=== PATIENT | male | born 1960 | race African-American/Black ===

== ENCOUNTER 2017-05-22 08:08 | Inpatient (IN) | payer OTHER ==
[~2017-05-22] VITALS: Ht 175.3 cm; Wt 90.7 kg
--- NOTE | ~2017-05-22 | HC ---
[facility] [place] [address] CONSULTATION Name: MADINA DESAI Room #: 361-P [facility] IN M.R.#: [id number] Admission: 05/22/17 Attend Phys: Renato De Paz DO Discharge: Date of : 56 Report #: [id number] THIS REPORT FOR: //name// CC: Renato Zhang INFECTIOUS DISEASES CONSULTATION REASON FOR CONSULTATION: I was asked to evaluate concerning leukocytosis and change in mental status. HISTORY OF PRESENT ILLNESS: The patient was a 56-year-old with history of hypertension and stroke who has been residing in a group home for the past year. Presents now with change in mental status. The patient was unable to give any history. I contacted Ce Wagoner, his significant other, who notes that he has had decreased mental status over the last week. She visited on Monday and noticed that he did answer questions, but he was not near as conversive that he normally is. She did state that his appetite was good. She did not notice any complaints of headache, cough, sputum production, nausea, vomiting or diarrhea. No dysuria. On presentation to the Emergency Room this morning, the history was that the patient was found in his wheelchair, slumped over on his bed. How long he was that way is not totally clear to me at this time. His blood sugar was satisfactory and oxygen saturation was normal. PAST MEDICAL HISTORY: Stroke. He has had left femur fracture, anxiety disorder, hyperlipidemia, major depressive disorder, hypertension, gastroesophageal reflux, gout, BPH. ALLERGIES: PENICILLIN, REACTION NOT KNOWN. MEDICATIONS: As noted on his JUN, which was reviewed. He does take baclofen, Flexeril, bupropion, aspirin, amlodipine, allopurinol, loratadine, pantoprazole, MiraLax, vitamin D, gabapentin, Sinemet, atorvastatin, donepezil, melatonin and trazodone. SOCIAL HISTORY: Noncontributory other than him is a group home resident. FAMILY HISTORY: Not available. REVIEW OF SYSTEMS: As noted above with no additions. PHYSICAL EXAMINATION: GENERAL: He was afebrile, hemodynamically stable. He was lethargic. Would arouse on loud verbal stimulus. Would not follow commands. SKIN: He had reticular erythematous type rash over his abdomen and lower extremities, mostly over the thighs. LYMPHATIC: Unremarkable. [address] [address] CONSULTATION Name: MAIDNA DESAI Room #: 361-P [facility] IN M.R.#: [id number] Admission: 05/22/17 Attend Phys: Renato De Paz DO Discharge: Date of : 56 Report #: [id number] HEENT: Conjunctival injection. Mouth unremarkable. NECK: Supple, no adenopathy. LUNGS: Clear. HEART: Regular, without murmur. ABDOMEN: Soft, did not appear tender with no hepatosplenomegaly or mass. GENITOURINARY: External genitalia were unremarkable. RECTAL: Not performed. EXTREMITIES: Unremarkable. NEUROLOGIC: Nonfocal. LABORATORY STUDIES: Chest x-ray, bilateral basilar atelectasis. CT of the head shows atrophy with no acute changes. Hemoglobin is 17.1; platelet count 280,000; white count 22.7. Lactate 2.2. Influenza antigen negative. TSH 6.9. Sodium 144, potassium 4.8, bicarb at 28, creatinine 1.6 up from his baseline of 0.8. Alkaline phosphatase 205, ALT 32, albumin of 4.4, bilirubin 0.7. Blood cultures are pending. IMPRESSION: A 56-year-old with change in mental status. Considerations would be stroke, seizure, encephalitis, toxic metabolic encephalopathy, urinary tract source possible. Did not get the sense that we are dealing with pneumonia or gastroenteritis type issue. No diarrhea. Did not have any abdominal pain. I have discussed with nursing staff who has watched him most of the day. It does seem that he has perked up a bit from his initial presentation. RECOMMENDATION: We will have Neurology assist in his evaluation. Would consider MRI scan and a lumbar puncture. We will check urinalysis, urine culture. CT scan of his abdomen and pelvis to assess his upper urinary tract further. Continue antibiotic coverage, pending culture results. Add acyclovir until further studies are back. <ELECTRONICALLY SIGNED> By: Agusto Baca MD 05/23/17 0843 [id number] 0256 Agusto Baca MD /nt
--- NOTE | ~2017-05-22 | EEG ---
[facility] [place] [address] ELECTROENCEPHALOGRAM Name: MADINA DESAI Room #: 361-P ADM IN M.R.#: [id number] Admission: 05/22/17 Attend Phys: Renato De Paz DO Discharge: Date of : 56 Report #: [id number] THIS REPORT FOR: //name// CC: Renato Zhang DATE OF SERVICE: 05/23/2017 This patient is being evaluated for altered mental status. EEG was done by placing the electrodes by standard 10/20 system of electrode placement. Both referential and sequential montages were used for recording. Background activity in this patient's EEG appeared to be about 8-9 Hz and 30 microvolt. Photic stimulation is unremarkable. The patient's EEG is slow on occasion that is associated with bilateral slowing. Throughout the record, no active epileptiform activity was noticed. IMPRESSION: This patient's EEG is only mildly abnormal intermixed with theta range slowing. No active epileptiform activity was noticed during this record. Thank you very much for this referral. <ELECTRONICALLY SIGNED> By: Radames Francis MD 05/24/172010 41 51 Radames Francis MD /nt
--- NOTE | ~2017-05-22 | EKG ---
[address] [address] ELECTROCARDIOGRAM REPORT Name: MADINA DESAI Room #: 361-P ADM IN M.R.#: [id number] Admission: 05/22/17 Attend Phys: Renato De Paz DO Discharge: Date of : 56 Report #: [id number] THIS REPORT FOR: //name// [facility] Test Date: 2017-05-22 Test Time: 13:08:10 Pat Name: MADINA DESAI Department: Room: [facility] Gender: M Commissary Agent: Kt MATUTE : 1960 Requested By: Jason Boateng Order Number: [id number] MD: Alexander Neville Measurements Intervals [place] Rate: 106 P: 56 FL: 175 QRS: 45 QRSD: 82 T: 32 QT: 367 QTc: 488 Interpretive Statements Sinus tachycardia Atrial premature complexes Probable left atrial enlargement Compared to ECG 05/17/2015 10:24:05 Atrial premature complex(es) now present Sinus rhythm no longer present T-wave abnormality no longer present Electronically Signed On 05-22-2017 15:46:23 GALVANOMETER ASSEMBLER by Alexander Neville [email or web address] <ELECTRONICALLY SIGNED> By: Alexander Neville MD 05/22/17 1546 1308 1308 Alexander Neville MD /EPI
--- NOTE | ~2017-05-22 | HC ---
[facility] [place] [address] CONSULTATION Name: MADINA DESAI Room #: 361-P [facility] IN M.R.#: [id number] Admission: 05/22/17 Attend Phys: Renato De Paz DO Discharge: Date of : 56 Report #: [id number] THIS REPORT FOR: //name// CC: Renato Zhang DATE OF SERVICE: 05/23/2017 HISTORY OF PRESENT ILLNESS: This is a 56-year-old male patient who is not able to provide any reliable history. I reviewed the patient's records and talked to Dr. Baca, the infectious disease who have seen this patient. None of the family member is available or reachable at the moment, we will try to reach them. This patient apparently is better than he was yesterday. He has altered mental status apparently, which is going on for a week and then he slumped. He was initially seen by Dr. Baca and this morning neurology consultation was requested to determine any neurological etiology for the patient's seizure. As far my conversation with the ID and the record, it looks like this patient has improved compared to yesterday. Nobody witnessed any seizure activity in this patient. His confusion was pretty severe yesterday, but today he is able to talk. There is no associated head trauma. No clear source of infection has been identified, but he has been treated accordingly. REVIEW OF SYSTEMS: Indicate that this patient had altered mental status. He was found slumped over. He indicated he had a stroke affecting the left side of the body. He indicated he is on disability because of hip and knee injury. He could not tell me when the stroke was. He said he lived by himself, but it looks like from the record he lives in a assisted. 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 He indicated that he does not know another. He did have some nausea and vomiting, but he is better. This was his relevant 14-point review of systems. PAST MEDICAL HISTORY: Positive for stroke, but I do not have any records in that regard. FAMILY HISTORY: Indicates that he does not have any early age stroke in his family. SOCIAL HISTORY: Indicate that he says that he does not smoke. PHYSICAL EXAMINATION: The patient's examinations indicate he is alert. He is responsive. His speech is very soft, but he is able to follow simple commands at least most of the time. He can tell me what month it is, he long time to name the president, but he could not tell me the exact date. Apparently, this is a significant improvement since yesterday. He does not appear to have any aphasia. His cranial nerve examination 2-12 were carried out and that indicate there may be a little facial palsy on the left side. Examination is [address] [address] CONSULTATION Name: MADINA DESAI Adi Room #: 361-P [facility] IN ..#: [id number] Admission: 05/22/17 Attend Phys: Renato De Paz DO Discharge: Date of : 56 Report #: [id number] incomplete because he is not able to cooperate very well. He moves the left side, but he is weaker on the left side. He says that he can feel things, but his tone looks symmetrical. It is difficult to tell about the meningeal sign. He indicates that his neck hurts, but it is not much in flexion or extension the best I can tell. He could not cooperate with the fundus examination. Cardiac and respiratory examination is unremarkable. He did have a CT scan of the head, which showed small vessel changes. His MRI is pending. IMPRESSION: This patient's diagnosis is not clear. He needs some further workup to determine the diagnosis in his case. I agree with an MRI. I will also favor doing a spinal tap in this patient. He did get Lovenox last night, so I will hold that Lovenox tonight and we will talk to you and talk to ID again and I will favor doing the spinal tap in this patient because the diagnosis is not clear in this patient. Since he had Lovenox last night and he is already on acyclovir and multiple other antibiotics, it may be desirable to do it tomorrow. I will also get an EEG done because the episode why he slumped over is not very clear. I discussed all of this with the patient in great detail. This patient is competent to make his decision. I discussed with him indications, potential complications and alternative of spinal tap and the workup we are going to do and he is agreeable with this plan. More than 50 minutes of time was spent taking care of this patient today and majority of that time was spent counseling this patient on above matters and coordinating his care. Thank you very much for this referral. <ELECTRONICALLY SIGNED> By: Radames Francis MD 05/24/172008 0936 1000 Radames Francis MD /nt
--- NOTE | ~2017-05-22 | EKG ---
[address] [place] [address] ELECTROCARDIOGRAM REPORT Name: MADINA DESAI Room #: 361-P ADM IN M.R.#: [id number] Admission: 05/22/17 Attend Phys: Renato De Paz DO Discharge: Date of : 56 Report #: [id number] THIS REPORT FOR: //name// [facility] ED Test Date: 2017-05-22 Test Time: 08:51:18 Pat Name: MADINA DESAI Department: Room: 361 Gender: M Warehouse Consultant: judit silveira : 1960 Requested By: Jason Boateng Order Number: [id number] MD: Evaristo Malagon Measurements Intervals [place] Rate: 111 P: 48 AR: 168 QRS: 24 QRSD: 84 T: 8 QT: 346 QTc: 470 Interpretive Statements Sinus tachycardia Atrial premature complexes Abnormal inferior Q waves Poor R wave progression Compared to ECG 05/17/2015 10:24:05 Atrial premature complex(es) now present Electronically Signed On 05-24-2017 8:40:56 PROGRAM SERVICES ASSISTANT by Evaristo Malagon [email or web address] <ELECTRONICALLY SIGNED> By: Evaristo Malagon MD, [facility] 05/24/17 0840 0851 0851 Evaristo Malagon MD, [facility] /EPI
[2017-05-22 08:08] VITALS: BP 188/107
[~2017-05-22 08:08] MED LIST: ACCURETIC 20-11 EACH PO; ACETAMINOPHEN325 M1 PO; ALEVE220 M1 PO; ALPRAZOLAM 0.50.5 MG PO; AMBIEN 5 MG TABL5 M1 PO; ANTIVERT25 MG PO; ASA5UEC PO; ASPIR 8181 M1 PO; ASPIR 8181 MG PO; ASPIRIN EC81 M1 PO; ATENOLOL 100MG100 M2 PO; ATENOLOL 100MG100 MG PO; ATIVAN0.5 MG PO; CALAN120 MG PO; CELEXA 20 MG TA20 M1 PO; CIPRO500 MG PO; CLONIDINE0.1 PO; COLACE100 MG PO; DIAZEPAM2 MG PO; ENOXAPARIN40 MG/0.1 SUBQ; FLEXERIL PO; FLOMAX0.4 MG PO; GEMFIBROZIL 60600 MG PO; GLUCOPHAGE500 MG PO; HYCET 7.5 MG-3473 ML PO; HYDROCHLOROTHIA25 M1 PO; HYDROCHLOROTHIA25 M2 PO; IBUPROFEN 400400 M1 PO; INDOMETHACIN 2525 MG PO; LEVAQUIN 500 M500 M2 PO; LIPITOR40 MG PO; LISINOPRIL10 MG PO; LOSARTAN-HCTZ1 EAC2 PO; MILK OF MA2400 MG/10 PO; NAPROXEN250 MG PO; NORCO 5-325 TA1 EACH PO; NORVASC2.5 MG PO; PAXIL10 MG; PRINIVIL20 MG PO; PROTONIX 20 MG20 M1 PO; PROTONIX40 M2 PO; SENNA PO; TOPROL XL50 MG PO; TYLENOL325 MG PO; UNKNWON; VALIUM5 MG PO; VERAPAMIL HCL 880 M1 PO; VERAPAMIL HCL80 MG PO; VITAMIN B-1100 M1 PO; XANAX 0.5 MG0.5 MG PO; ZOFRAN ODT4 MG PO; ZOLOFT50 MG PO; ZPAK PO
[2017-05-22 09:12] LABS: HEMATOCRIT 54.1 % (42.0-52.0); HEMOGLOBIN 17.1 gm/dL (14.0-18.0); MCHC 31.6 g/dL (28.0-37.0); MCV 78.9 fL (80.0-100.0); RBC 6.85 mil/uL (4.50-6.00); RDW 18.6 % (10.5-14.5); WBC 22.7 thou/uL (4.0-11.0)
[2017-05-22 09:27] LABS: ANION GAP 10 mmol/L (7-16); BUN 23 mg/dL (7-18); CALCIUM 10.3 mg/dL (8.5-10.1); CHLORIDE 106 mmol/L (98-107); CO2 28 mmol/L (21-32); CREATININE 1.6 mg/dL (0.7-1.3); GLUCOSE 148 mg/dL (74-106); POTASSIUM 4.8 mmol/L (3.5-5.1); SODIUM 144 mmol/L (136-145)
[2017-05-22 09:35] LABS: ALBUMIN 4.4 g/dL (3.4-5.0); SALICYLATE < 2.8 mg/dL (2.8-20.0); SGOT 23 U/L (15-37); SGPT 32 U/L (30-65); TOTAL BILIRUBIN 0.7 mg/dL (<0.1-1.0); TROPONIN-I < 0.04 ng/mL (<0.06)
[2017-05-22 09:55] LABS: BE(vivo) 0.5 mmol/L (-2 to +3); HCO3 28.2 mmol/L (22.0-26.0); PCO2 VENOUS 56.2 mmHg (41.0-51.0); PO2 VENOUS 20.9 mmHg (35.0-45.0)
[2017-05-22 10:07] LABS: AMP/METHAMP Negative (Negative); BARBITURATES Negative (Negative); BENZODIAZEPINES Negative (Negative); COCAINE Negative (Negative); METHADONE Negative (Negative); OPIATES Negative (Negative); PCP Negative (Negative)
[2017-05-22] MEDS ORDERED: ALLOPURINOL 10100 M1 PO (11:02)
[2017-05-22] MEDS ORDERED: AMLODIPINE BESY10 MG PO (11:02)
[2017-05-22] MEDS ORDERED: WELLBUTRIN SR150 M1 PO (11:03)
[2017-05-22] MEDS ORDERED: CLARITIN10 MG PO (11:03)
[2017-05-22] MEDS ORDERED: VITAMIN D2000 UNIT PO (11:04)
[2017-05-22] MEDS ORDERED: MIRALAX17 GM PO (11:04)
[2017-05-22] MEDS ORDERED: TYLENOL EXTRA500 MG PO (11:05)
[2017-05-22] MEDS ORDERED: LIORESAL 10 MG10 MG PO ×2 (11:05)
[2017-05-22] MEDS ORDERED: CYCLOBENZAPRINE5 MG PO (11:06)
[2017-05-22] MEDS ORDERED: NEURONTIN 300300 M1 PO (11:06)
[2017-05-22] MEDS ORDERED: SINEMET 25-1001 EAC1 PO (11:06)
[2017-05-22] MEDS ORDERED: LIPITOR 20 MG T20 M1 PO (11:07)
[2017-05-22] MEDS ORDERED: ARICEPT 5 MG TAB5 MG PO (11:07)
[2017-05-22] MEDS ORDERED: MELATONIN3 MG PO (11:07)
[2017-05-22 11:08] VITALS: BP 182/118
[2017-05-22] MEDS ORDERED: TRAZODONE HCL50 MG PO (11:08)
[2017-05-22 11:27] VITALS: BP 170/104
[2017-05-22 13:27] VITALS: BP 175/99
[2017-05-22 16:43] VITALS: BP 166/71
[2017-05-22 19:01] LABS: URINE BILIRUBIN NEGATIVE (Negative); URINE BLOOD 2+ (Negative); URINE CLARITY CLEAR; URINE COLOR YELLOW; URINE GLUCOSE-RANDOM* NEGATIVE (Negative); URINE KETONES NEGATIVE (Negative); URINE LEUKOCYTES NEGATIVE (Negative); URINE NITRITE NEGATIVE (Negative); URINE PROTEIN (DIPSTICK) TRACE (Negative); URINE SPECIFIC GRAVITY 1.025 (1.005-1.035); URINE UROBILINOGEN 0.2 E.U./dl (0.2-1.0)
[2017-05-22 19:06] LABS: BACTERIA >30 Many /HPF (None Seen); CASTS None Seen /LPF (None Seen); CRYSTALS None Seen /LPF (None Seen); SQUAMOUS None Seen /LPF (0-3); URINE WBC 0-5 Rare /HPF (0-5)
[2017-05-22 19:22] VITALS: BP 153/86
[2017-05-23 03:52] VITALS: BP 153/92
[2017-05-23 06:25] LABS: ABSOLUTE NEUTROPHILS 11.7 thou/uL (1.4-8.2); EOSINOPHILS 1.5 % (0.0-3.0); LYMPHOCYTES 19.5 % (24.0-44.0); MCH 24.6 pg (26.0-34.0); MCHC 31.5 g/dL (28.0-37.0); MCV 78.1 fL (80.0-100.0); MONOCYTES 7.3 % (1.0-8.0); POLYS 70.7 % (36.0-66.0); RBC 5.88 mil/uL (4.50-6.00); RDW 18.2 % (10.5-14.5); WBC 16.5 thou/uL (4.0-11.0)
[2017-05-23 06:31] LABS: HEMOGLOBIN 14.5 gm/dL (14.0-18.0); PLATELET COUNT 179 thou/uL (150-400)
[2017-05-23 06:41] LABS: CREATININE 0.9 mg/dL (0.7-1.3)
[2017-05-23 06:51] LABS: POTASSIUM 3.6 mmol/L (3.5-5.1)
[2017-05-23 08:29] VITALS: BP 129/89
[2017-05-23 17:43] VITALS: BP 125/82
[2017-05-23 20:10] VITALS: BP 148/93
[2017-05-24 04:00] VITALS: BP 153/92
[2017-05-24 06:13] LABS: ABSOLUTE NEUTROPHILS 7.4 thou/uL (1.4-8.2); BASOPHILS 0.3 % (0.0-2.0); EOSINOPHILS 5.9 % (0.0-3.0); HEMATOCRIT 42.8 % (42.0-52.0); HEMOGLOBIN 13.5 gm/dL (14.0-18.0); LYMPHOCYTES 30.8 % (24.0-44.0); MCH 24.6 pg (26.0-34.0); MCHC 31.6 g/dL (28.0-37.0); MCV 77.9 fL (80.0-100.0); MONOCYTES 7.2 % (1.0-8.0); PLATELET COUNT 168 thou/uL (150-400); POLYS 55.8 % (36.0-66.0); RBC 5.49 mil/uL (4.50-6.00); RDW 17.6 % (10.5-14.5); WBC 13.3 thou/uL (4.0-11.0)
[2017-05-24 06:32] LABS: CALCIUM 8.5 mg/dL (8.5-10.1); CREATININE 0.8 mg/dL (0.7-1.3); POTASSIUM 3.2 mmol/L (3.5-5.1)
[2017-05-24 08:13] VITALS: BP 147/90
[2017-05-24 11:58] LABS: APTT 28.6 Seconds (24.5-32.8); INR 1.1; PROTIME 10.9 Seconds (9.3-11.4)
[2017-05-24 12:01] VITALS: BP 137/88
[2017-05-24 14:47] LABS: VOLUME 6 ml
[2017-05-24 15:15] LABS: CSF PROTEIN 241 mg/dL (15-45)
[2017-05-24 15:18] LABS: CSF GLUCOSE 61 mg/dL (40-70)
[2017-05-24 15:47] LABS: CSF RBC 2756 /mm3
[2017-05-24 15:51] LABS: CSF EOSINOPHILS 2 %; CSF LYMPHOCYTES 83 %; CSF MONONUCLEARS 4 %; CSF POLYS 11 %
[2017-05-24 15:56] LABS: CSF WBC 28 /mm3 (0-10)
[2017-05-24 16:07] VITALS: BP 137/87
[2017-05-24 19:04] VITALS: BP 144/85
[2017-05-24 23:47] VITALS: BP 154/86
[2017-05-25 03:29] VITALS: BP 149/98
[2017-05-25 08:35] VITALS: BP 144/77
[2017-05-25 08:47] LABS: HSV PCR SOURCE CSF
[2017-05-25 13:25] VITALS: BP 152/82
[2017-05-25 15:59] VITALS: BP 160/97
[2017-05-25 20:00] VITALS: BP 155/93
[2017-05-25 22:11] LABS: ADENOVIRUS Negative (Negative); INFLUENZA A Negative (Negative); INFLUENZA B Negative (Negative); METAPNEUMOVIRUS Negative (Negative); PARAINFLUENZA 1 Negative (Negative); PARAINFLUENZA 2 Negative (Negative); PARAINFLUENZA 3 Negative (Negative); RHINOVIRUS Negative (Negative); RSV A Negative (Negative); RSV B Negative (Negative)
[2017-05-26 04:00] VITALS: BP 173/98
[2017-05-26 04:07] LABS: ABSOLUTE NEUTROPHILS 7.6 thou/uL (1.4-8.2); BASOPHILS 0.6 % (0.0-2.0); EOSINOPHILS 4.7 % (0.0-3.0); HEMATOCRIT 42.4 % (42.0-52.0); HEMOGLOBIN 13.6 gm/dL (14.0-18.0); LYMPHOCYTES 26.1 % (24.0-44.0); MCH 24.9 pg (26.0-34.0); MCHC 32.1 g/dL (28.0-37.0); MCV 77.5 fL (80.0-100.0); MONOCYTES 7.5 % (1.0-8.0); PLATELET COUNT 152 thou/uL (150-400); POLYS 61.1 % (36.0-66.0); RBC 5.47 mil/uL (4.50-6.00); RDW 17.6 % (10.5-14.5); WBC 12.4 thou/uL (4.0-11.0)
[2017-05-26 04:29] LABS: CALCIUM 8.3 mg/dL (8.5-10.1); CREATININE 0.8 mg/dL (0.7-1.3); POTASSIUM 3.2 mmol/L (3.5-5.1)
[2017-05-26 08:45] VITALS: BP 165/99
[2017-05-26 09:15] VITALS: BP 150/96
[2017-05-26 11:55] VITALS: BP 141/99; BP 141/998
[2017-05-26] MEDS ORDERED: ACYCLOVIR IV (13:50)
[2017-05-26 15:15] VITALS: BP 153/108
[2017-05-26 16:16] VITALS: BP 153/99
[2017-05-26 18:10] LABS: CSF IgG 22.1 mg/dL (0.0-8.6)
[2017-05-26 22:11] LABS: HSV 1 DNA Negative (Negative); HSV 2 DNA Negative (Negative)
== END 2017-05-26 17:23 | DRG 871 ==
LOC: ER 08:08 → 3W 09:34 → EROBS 09:34 → 3W 11:28
PROVIDERS: Emergency Medicine; Family Medicine; Psychiatry & Neurology Neuromuscular Medicine; Specialist
PROC: B01B1ZZ Fluoroscopy of Spinal Cord using Low Osmolar Contrast (ICD-10-PCS; principal; 2017-05-24)
PROC: 009U3ZX Drainage of Spinal Canal, Percutaneous Approach, Diagnostic (ICD-10-PCS; principal; 2017-05-24)
DX: A41.9 Sepsis, unspecified organism (principal); G93.40 Encephalopathy, unspecified; A87.9 Viral meningitis, unspecified; I10 Essential (primary) hypertension; F41.9 Anxiety disorder, unspecified; E78.5 Hyperlipidemia, unspecified; F32.9 Major depressive disorder, single episode, unspecified; K21.9 Gastro-esophageal reflux disease without esophagitis; M10.9 Gout, unspecified; N40.0 Benign prostatic hyperplasia without lower urinary tract symptoms; Z79.899 Other long term (current) drug therapy; Z88.0 Allergy status to penicillin; Z87.81 Personal history of (healed) traumatic fracture; I69.392 Facial weakness following cerebral infarction
CPT/HCPCS: 10879

== ENCOUNTER → 2017-06-02 | Outpatient (CLI) | payer OTHER ==
[~2017-06-02] MED LIST changes: +ACYCLOVIR IV; +ALLOPURINOL 10100 M1 PO; +AMLODIPINE BESY10 MG PO; +ARICEPT 5 MG TAB5 MG PO; +CLARITIN10 MG PO; +CYCLOBENZAPRINE5 MG PO; +LIORESAL 10 MG10 MG PO; +LIPITOR 20 MG T20 M1 PO; +MELATONIN3 MG PO; +MIRALAX17 GM PO; +NEURONTIN 300300 M1 PO; +SINEMET 25-1001 EAC1 PO; +TRAZODONE HCL50 MG PO; +TYLENOL EXTRA500 MG PO; +VITAMIN D2000 UNIT PO; +WELLBUTRIN SR150 M1 PO
[2017-06-02 11:01] LABS: CSF GLUCOSE 58 mg/dL (40-70); CSF PROTEIN 149 mg/dL (15-45)
[2017-06-02 11:11] LABS: CSF CLARITY CLEAR; CSF COLOR COLORLESS; CSF RBC 0 /mm3; CSF WBC 9 /mm3 (0-10); VOLUME 11 ml
== END | disposition home or self-care (01) ==
LOC: RAD 07:33
PROVIDERS: Specialist
DX: L03.90 Cellulitis, unspecified (principal)